=== PATIENT | male | born 1970 | race Native Hawaiian/Other Pacific Islander ===

== ENCOUNTER 2018-05-22 08:10 | Outpatient (CLI) | payer OTHER | END 2018-05-22 08:11 | disposition home or self-care (01) | LOC: LAB 08:10 ==

== ENCOUNTER → 2018-07-31 | Outpatient (CLI) | payer OTHER | LOC: LAB 07:08 ==

== ENCOUNTER → 2018-08-26 | Outpatient (CLI) | payer OTHER | LOC: LAB 09:31 ==

== ENCOUNTER 2018-09-14 10:49 | Outpatient (CLI) | payer OTHER | END 2018-09-14 10:50 | disposition home or self-care (01) | LOC: LAB 10:49 ==